=== PATIENT | female | born 2000 | race African-American/Black ===

== ENCOUNTER 2020-01-13 09:29 | Emergency (ER) | payer MEDICAID, OTHER ==
[~2020-01-13] VITALS: Ht 167 cm; Wt 49.8 kg
--- OUTSIDE RECORDS SUMMARY | 2020-01-13 09:49 | XMS REPORT ---
Author Author Tiara EVANS 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 Active [id number] ALLERGIES No Information ENCOUNTERS Encounter Location Date Diagnosis [facility] [id number] [place] [phone] February, [facility] [address] [phone] Jan, [facility] [address] [id number] [place] [phone] Jan, Adjustment insomnia F51.02 ; Family discord Z63.8 ; Housing or economic problem Z59.9 and 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 [facility] [id number] [place] [phone] Sep, Influenza B J10.1 and Influe nza J11.1 [facility] [id number] [place] [phone] Aug, Encounter for immunization Z 23 IMMUNIZATIONS Vaccine Route Administration Date Status BEXSERO (MEN B) IM Intramuscular Aug 05, 2017 Administered MENINGOCOCCAL (MENVEO) IM Intramuscular Aug 05, 2017 Administ melchor GARDASIL 9 IM Intramuscular Aug 05, 2017 Administered HEP A (PED/ADOL-2 DOSE) IM Intramuscular Aug 05, 2017 Adminis tered SOCIAL HISTORY Never Assessed REASON FOR VISIT MCV4/Hep A/HPV/Bexsero-BStansbury ACCOUNT LIAISON/METAL CABINET FINISHER PLAN OF CARE Activity Details Follow Up 4 Weeks Reason: VITAL SIGNS MEDICATIONS Unknown Medications RESULTS No Results PROCEDURES Procedure Date Ordered Result Body Site HEP A (PED/ADOL-2 DOSE) Aug 05, 2017 GARDISIL 9 Aug 05, 2017 BEXSERO (MEN B) Aug 05, 2017 MENINGOCOCCAL (MENVEO) Aug 05, 2017 IMMUNIZATION ADMIN, EACH ADD (please include units) Aug 05, 2017 SINGLE IMMUNIZATION ADMIN Aug 05, 2017 INSTRUCTIONS MEDICATIONS ADMINISTERED No Known Medications
--- OUTSIDE RECORDS SUMMARY | 2020-01-13 09:49 | XMS REPORT ---
Author Author Tiara EVANS Organization 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 Active [id number] ALLERGIES No Known Allergies ENCOUNTERS Encounter Location Date Diagnosis [facility] [id number] [place] [phone] February, [facility] [address] [phone] Jan, [facility] [id number] [place] [phone] Jan, Adjustment insomnia F51.02 ; Family discord Z63.8 ; Housing or economic problem Z59.9 and 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 Reason: VITAL SIGNS Height 66 in 2017-09-16 Weight 106.4 lbs 2017-09-16 Temperature 100.2 degrees Fahrenheit 2017-09-16 Heart Rate 97 bpm 2017-09-16 Respiratory Rate 18 2017-09-16 BMI 17.17 kg/m2 2017-09-16 Blood pressure systolic 138 mmHg 2017-09-16 Blood pressure diastolic 82 mmHg 2017-09-16 MEDICATIONS Medication Instructions Dosage Frequency Start Date End Date Duration S tatus Tamiflu 75 MG Orally Twice a day 1 capsule 12h Sep, 5 day(s) Active Zofran 4 MG Orally twice a day prn nausea/vomiting 2 tablets Sep, 05 days Active RESULTS Name Result Date Reference Range INFLUENZA A & B (IN HOUSE) 2017-09-16 INFLUENZA A Negative INFLUENZA B Positive Control + Lot # [id number] Exp date 12/02/2018 PROCEDURES Procedure Date Ordered Result Body Site INFLUENZA ASSAY W/OPTIC Sep 16, 2017 INSTRUCTIONS MEDICATIONS ADMINISTERED No Known Medications
--- OUTSIDE RECORDS SUMMARY | 2020-01-13 09:49 | XMS REPORT | Continuity of Care Document ---
Author Organization Unknown Address Unknown Phone Unavailable Allergies There is no data. Medications There is no data. Problems There is no data. Procedures There is no data. Results Test Result Range CULTURE, URINE - 12/01/19 19:00 CULTURE, URINE, ROUTINE SEE NOTE NRG CULTURE, GENITAL - 12/01/19 19:00 CULTURE, GENITAL SEE NOTE NRG GC/CHLAMYDIA (SWAB OR URINE)-RAPID - 19:00 CHLAMYDIA TRACHOMATIS RNA, TMA DETECTED NOT DETECTED NEISSERIA GONORRHOEAE RNA, TMA NOT DETECTED NOT DETECTED COMMENT NRG CULTURE, GENITAL - 01/07/20 17:30 CULTURE, GENITAL SEE NOTE NRG Encounters ACCT No. Visit Date/Time Discharge Status Pt. Type Provider Facility Loc./Unit Complaint [id number] 01/07/2020 16:30:00 01/07/2020 23:59: 59 [facility] [id number] 01/07/2020 16:30:00 Document Registration [id number] 12/01/2019 14:20:00 Document Registration
--- OUTSIDE RECORDS SUMMARY | 2020-01-13 09:49 | XMS REPORT ---
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 Active [id number] ALLERGIES No Information ENCOUNTERS Encounter Location Date Diagnosis [facility] [address] [facility] [id number] [place] [phone] February, [facility] [id number] [place] [phone] Jan, [facility] [id number] [place] [phone] Jan, Adjustment insomnia F51.02 ; Family discord Z63.8 ; Housing or economic problem Z59.9 and 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
--- OUTSIDE RECORDS SUMMARY | 2020-01-13 09:49 | XMS REPORT ---
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 Active [id number] ALLERGIES No Information ENCOUNTERS Encounter Location Date Diagnosis [facility] [address] [place] [phone] February, [facility] [id number] [place] [phone] Jan, [facility] [id number] [place] [phone] Jan, Adjustment insomnia F51.02 ; Family discord Z63.8 ; Housing or economic problem Z59.9 and 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
--- OUTSIDE RECORDS SUMMARY | 2020-01-13 09:49 | XMS REPORT ---
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 Active [id number] ALLERGIES No Known Allergies ENCOUNTERS Encounter Location Date Diagnosis [facility] [id number] [place] [phone] February, [facility] [address] [phone] Jan, [facility] [id number] [place] [phone] Jan, Adjustment insomnia F51.02 ; Family discord Z63.8 ; Housing or economic problem Z59.9 and 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 [facility] [id number] [place] [id number] Sep, Influenza B J10.1 and Influe nza J11.1 [facility] [id number] [place] [address] [phone] Aug, Encounter for immunization Z 23 IMMUNIZATIONS No Known Immunizations SOCIAL HISTORY Never Assessed REASON FOR VISIT depression-Lester MONROE PLAN OF CARE Activity Details Follow Up 1 Week Reason: VITAL SIGNS Height 66 in 2018-01-27 Weight 111.8 lbs 2018-01-27 Temperature 99.4 degrees Fahrenheit 2018-01-27 Heart Rate 71 bpm 2018-01-27 Respiratory Rate 18 2018-01-27 BMI 18.04 kg/m2 2018-01-27 Blood pressure systolic 114 mmHg 2018-01-27 Blood pressure diastolic 65 mmHg 2018-01-27 MEDICATIONS Medication Instructions Dosage Frequency Start Date End Date Duration S tatus Zoloft 25 MG Orally Once a day x 1 week then increase to 2 taablets daily 1 tablet Jan, 30 day(s) Active Zofran 4 MG Orally twice a day prn nausea/vomiting 2 tablets Sep, 05 days Not-Taking Tamiflu 75 MG Orally Twice a day 1 capsule 12h Sep, 5 day(s) Not-Taking RESULTS No Results PROCEDURES No Known procedures INSTRUCTIONS MEDICATIONS ADMINISTERED No Known Medications
[2020-01-13] MEDS ORDERED: METR250T PO (09:59)
--- NOTE | 2020-01-13 10:00 | ED General ---
General Chief Complaint: LOCOMOTIVE OPERATOR Stated Complaint: FALL;18 WEEKS PREG Source of Information: Patient Exam Limitations: No Limitations History of Present Illness Date Seen by Provider: Jan 13, 2020 Time Seen by Provider: 09:46 Initial Comments Here with report of fall at home. She was playing with her family member and had the dog. The dog cross behind her in the leash tripped her. She fell backward onto her bottom. She is approximately 18 weeks and was feeling some lower uterine pain. She is being treated currently for bacterial vaginosis though. Denies vaginal bleeding or discharge currently. Denies any significant abdominal cramping or low back pain. Denies other injury. Timing/Duration: 1-3 Hours Severity: Mild Associated Systoms: No Chest Pain, No Fever/Chills, No Nausea/Vomiting, No Shortness of Air, No Weakness Allergies and Home Medications Patient Home Medication List Home Medication List Reviewed: Yes Review of Systems Review of Systems Constitutional: no symptoms reported Respiratory: no symptoms reported Gastrointestinal: see HPI, abdominal pain; No nausea, No vomiting Genitourinary: no symptoms reported : Yes Musculoskeletal: no symptoms reported Past Qnwzkrv-Gejlvh-Zsvbyk Hx Past Med/Social Hx: Reviewed Nursing Past Med/Soc Hx Patient Social History Alcohol Use: Denies Use Recreational Drug Use: Yes Drug of Choice: marijuana Smoking Status: Never a Smoker Recent Hopitalizations: No Physical Abuse: No Sexual Abuse: No Mistreated: No Fear: No Seasonal Allergies Seasonal Allergies: No Past Medical History Surgeries: No Respiratory: No Cardiac: No Neurological: No Genitourinary: No Gastrointestinal: No Musculoskeletal: No Endocrine: No HEENT: No Cancer: No Psychosocial: No Integumentary: No Blood Disorders: No Family Medical History Reviewed Nursing Family Hx Physical Exam Vital Signs Vital Signs - First Documented 01/13/20 09:30 Temp 35.8 Pulse 75 Resp 18 B/P (MAP) 100/40 Capillary Refill : Height, Weight, BMI Height: '" Weight: lbs. oz. kg; BMI Method: General Appearance: No Apparent Distress, WD/WN Respiratory: Lungs Clear, Normal Breath Sounds Cardiovascular: Regular Rate, Rhythm, No Murmur Gastrointestinal: No Organomegaly, No Pulsatile Mass, Soft, Other (gravid to area below the umbilicus. Mild lower abdominal tenderness to palpation in the suprapubic region) Extremity: Normal Range of Motion, Non Tender Neurologic/Psychiatric: Alert, Oriented x3 Skin: Normal Color, Warm/Dry Progress/Results/Core Measures Suspected Sepsis SIRS Temperature: Pulse: Respiratory Rate: Blood Pressure / Mean: Results/Orders My Orders Orders - CEDRICK MORALES MD Us Ob Preg Late(14-40wks)[id number] (01/13/20 09:46) Vital Signs/I&O 01/13/20 09:30 Temp 35.8 Pulse 75 Resp 18 B/P (MAP) 100/40 Capillary Refill : Progress Note : Progress Note Seen and evaluated. Patient artery being treated for vaginal infection. We will get a ultrasound pelvis OB and evaluate current status of child. Monitor patient. 1038: Preliminary ultrasound results showed no acute findings with normal heart rate. Patient feeling better. Discharged home with return precautions. Patient verbalize understanding instructions and agreement with plan. Diagnostic Imaging Diagonstic Imaging: Ultrasound Plain Films/CT/US/NM/MRI: pelvis Comments NAME: JORDAN JOSEPH [facility] REC#: [id number] PT STATUS: REG ER : 2000 PHYSICIAN: CEDRICK MORALES MD ADMIT DATE: 01/13/20/ER Draft Date of Exam:01/13/20 US OB PREG LATE(14-40WKS)[id number] INDICATION: Fell. TECHNIQUE: Multiple real-time grayscale images were obtained over the gravid uterus. COMPARISON: There are no prior studies available for comparison. FINDINGS: There is a single live fetus in cephalic presentation. heart motion was noted at a rate of 135 bpm is recorded. There are no obvious abnormalities identified, although a complete survey was not performed. Amniotic fluid volume is within normal limits. The placenta is anterior and intact. There is no evidence of previa. The growth parameters are fairly uniform. Biometrical measurements are as follows: Biparietal 4.63 cm, age 20 weeks 0 days. Head circumference 17.36 cm, age 20 weeks 0 days. Abdominal circumference 16.47 cm, age 21 weeks 4 days. Femur length 3.44 cm, age 20 weeks 6 days. Sonographic estimate age: 20 weeks 5 days. Sonographic estimated date of delivery: 05/27/2020. Estimated Weight: 394 gm (+/- 58 gm). LMP percentile: 98%. heart rate: 135 beats per minute. number: 1 of 1. IMPRESSION: 1. There is a single live fetus approximately 20 weeks 5 days gestation +/- 1.5 weeks. EDC is May 27, 2020. 2. There are no obvious abnormalities identified and there is no sign of an injury to the placenta. Dictated on workstation # [id number] Dict: 01/13/20 1030 Trans: 01/13/20 1039 [facility] [id number] Interpreted by: MARINO GARCIA MD Electronically signed by: Departure Impression Primary Impression: Lower abdominal pain Additional Impression: Abdominal pain during Qualified Codes: O26.892 - Other specified related conditions, s econd trimester; R10.9 - Unspecified abdominal pain Disposition: 01 HOME, SELF-CARE Condition: Improved Departure-Patient Inst. Decision time for Depature: 10:40 Referrals: [facility] [place] Primary Care Physician LORRAINE WHITE MD (Family) Primary Care Physician Patient Instructions: Abdominal Trauma in (DC), Acute Abdomen (Belly Pain), Adult (DC) Add. Discharge Instructions: All discharge instructions reviewed with patient and/or family. Voiced understanding. Follow-up with your OB doctor in the next several days for recheck and further evaluation. You may call the office. Return for worse pain, vaginal bleeding, weakness, breathing problems or other concerns as needed. Copy Copies To 1: LORRAINE WHITE MD, TIMOTHY D MD Jan 13, 2020 10:00
--- NOTE | 2020-01-13 10:40 | Diagnostic Imaging Report ---
INDICATION: Fell. TECHNIQUE: Multiple real-time grayscale images were obtained over the gravid uterus. COMPARISON: There are no prior studies available for comparison. FINDINGS: There is a single live fetus in cephalic presentation. heart motion was noted at a rate of 135 bpm is recorded. There are no obvious abnormalities identified, although a complete survey was not performed. Amniotic fluid volume is within normal limits. The placenta is anterior and intact. There is no evidence of previa. The growth parameters are fairly uniform. Biometrical measurements are as follows: Biparietal 4.63 cm, age 20 weeks 0 days. Head circumference 17.36 cm, age 20 weeks 0 days. Abdominal circumference 16.47 cm, age 21 weeks 4 days. Femur length 3.44 cm, age 20 weeks 6 days. Sonographic estimate age: 20 weeks 5 days. Sonographic estimated date of delivery: 05/27/2020. Estimated Weight: 394 gm (+/- 58 gm). LMP percentile: 98%. heart rate: 135 beats per minute. number: 1 of 1. IMPRESSION: 1. There is a single live fetus approximately 20 weeks 5 days gestation +/- 1.5 weeks. EDC is May 27, 2020. 2. There are no obvious abnormalities identified and there is no sign of an injury to the placenta. Dictated by: Dictated on workstation # [id number]
== END 2020-01-13 10:54 | disposition home or self-care (01) ==
LOC: ER 09:33
DX: O26.892 Other specified pregnancy related conditions, second trimester (principal); R10.30 Lower abdominal pain, unspecified; Z3A.18 18 weeks gestation of pregnancy; W01.0XXA Fall on same level from slipping, tripping and stumbling without subsequent striking against object, initial encounter; Y92.009 Unspecified place in unspecified non-institutional (private) residence as the place of occurrence of the external cause
CPT/HCPCS: 76805

== ENCOUNTER 2020-12-05 21:29 | Emergency (ER) | payer MEDICAID ==
[~2020-12-05] VITALS: Ht 167.7 cm; Wt 61.4 kg
[~2020-12-05 21:29] MED LIST: METR250T PO
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
[2020-12-05] MEDS ORDERED: ACETAMINOPHEN 500 MG TAB (TYLENOL) PO ONE (22:30)
[2020-12-05] MEDS ORDERED: ONDANSETRON 4 MG (ZOFRAN) ORAL DISSOLVE TAB PO ONE (22:30)
[2020-12-05 23:13] VITALS: BP 126/66
== END 2020-12-05 23:13 | disposition home or self-care (01) ==
LOC: EDUNIT# 21:29 → ER 21:31
DX: O26.892 Other specified pregnancy related conditions, second trimester (principal); S16.1XXA Strain of muscle, fascia and tendon at neck level, initial encounter; R51.9 Headache, unspecified; R10.32 Left lower quadrant pain; R10.31 Right lower quadrant pain; Z3A.25 25 weeks gestation of pregnancy; V89.2XXA Person injured in unspecified motor-vehicle accident, traffic, initial encounter

== ENCOUNTER 2020-12-05 23:28 | Outpatient (CLI) | payer MEDICAID ==
[~2020-12-05] VITALS: Ht 167 cm; Wt 61.5 kg
[2020-12-05 23:42] VITALS: BP 123/59
[2020-12-05 23:59] LABS: BILIRUBIN,URINE NEGATIVE (NEGATIVE); CLARITY,URINE SL CLOUDY; COLOR,URINE YELLOW; GLUCOSE, URINE (UA) NEGATIVE (NEGATIVE); KETONES,URINE NEGATIVE (NEGATIVE); LEUKOCYTE ESTERASE ,URINE NEGATIVE (NEGATIVE); NITRITE,URINE NEGATIVE (NEGATIVE); PROTEIN,URINE NEGATIVE (NEGATIVE)
[2020-12-06] VITALS: BP 123/59
[2020-12-06 00:10] LABS: AMORPHOUS SEDIMENT,UR FEW AMOR URATES /LPF; BACTERIA,URINE MODERATE /HPF; SQUAMOUS EPITHELIAL CELL,UR 25-50 /HPF
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
== END 2020-12-06 00:06 | disposition left against medical advice (07) ==
LOC: WSo 23:28 → LDRP 23:29 → WSo 12-06 00:06
PROVIDERS: ATTEND Family Medicine
DX: O9A.212 Injury, poisoning and certain other consequences of external causes complicating pregnancy, second trimester (principal); Z3A.25 25 weeks gestation of pregnancy
CPT/HCPCS: 81000

== ENCOUNTER 2021-01-24 11:53 | Outpatient (CLI) | payer MEDICAID ==
[2021-01-24 12:14] VITALS: BP 118/71
[2021-01-24 12:16] VITALS: BP 118/71
[2021-01-24 12:27] LABS: BILIRUBIN,URINE NEGATIVE (NEGATIVE); CLARITY,URINE CLEAR; COLOR,URINE YELLOW; GLUCOSE, URINE (UA) NEGATIVE (NEGATIVE); KETONES,URINE NEGATIVE (NEGATIVE); LEUKOCYTE ESTERASE ,URINE TRACE (NEGATIVE); NITRITE,URINE NEGATIVE (NEGATIVE); PROTEIN,URINE NEGATIVE (NEGATIVE)
[2021-01-24 12:34] LABS: BACTERIA,URINE FEW /HPF
[2021-01-24] MEDS ORDERED: ACETAMINOPHEN 500 MG TAB (TYLENOL) ONE (13:35)
[2021-01-24] MEDS ORDERED: ACETAMINOPHEN 500 MG TAB (TYLENOL) PO PRN (13:45)
[2021-01-24] MEDS ORDERED: LACTATED RINGERS 1,000 ML IV SCH (14:15)
[2021-01-24] MEDS ORDERED: TERBUTALINE INJ 1 MG/ML (BRETHINE) AMP SC ONE ×2 (14:15→17:30)
[2021-01-24] MEDS ORDERED: BETAMETHASONE ACE/NA PHOS 6 MG/ML (CELESTONE SOLUSPAN) ONE (18:16)
--- NOTE | 2021-01-24 18:25 | Short Stay Summary ---
History of Present Illness History of Present Illness Reason for visit/HPI 20-year-old 2 living 1 who presents to labor and delivery at [facility]. She is noted to be at 32 weeks 4/7 gestation. Patient is followed by Dr. Pagan at [facility] in [facility]. She does have a history delivering 9 months ago at 33 weeks gestation after spontaneous rupture of membranes. She stated she quickly went on to deliver. Date of Admission January 24, 2021 observation Date of Discharge January 24, 2021 Time Seen by Provider: 18:00 Attending Physician Red Alves MD Admitting Physician [place] Consult Allergies and Home Medications Allergies Coded Allergies: No Known Drug Allergies (Unverified , 12/05/20) Patient Home Medication List Home Medication List Reviewed: Yes Past Greikbk-Zvjvmm-Jndehw Hx Patient Social History Marrital Status: single Number of Children: 1 Drug of Choice: "WEED" - LAST USED YESTERDAY (01/23/21) Smoking Status: Never a Smoker 2nd Hand Smoke Exposure: No Recent Hopitalizations: No Seasonal Allergies Seasonal Allergies: No Surgeries No Respiratory No Cardiovascular No Neurological No Reproductive System Expected Date of Delivery: Mar 17, 2021 Hx : 2 Hx Para: 1 Hx Total # of Abortions (Spona: 0 Genitourinary No Gastrointestinal No Musculoskeletal No Endocrine History of Endocrine Disorders: No HEENT History of HEENT Disorders: No Cancer No Psychosocial History of Psychiatric Problem: No Integumentary History of Skin or Integumenta: No Blood Transfusions History of Blood Disorders: No Review of Systems Constitutional: no symptoms reported Physical Exam Vital Signs Vital Signs - First Documented 01/24/21 12:16 Temp 37.0 Pulse 88 Resp 18 O2 Delivery Room Air Capillary Refill : Less Than 3 Seconds Height, Weight, BMI Height: '" Weight: lbs. oz. kg; 22.05 BMI Method: General Appearance: No Apparent Distress Eyes: Bilateral Eye Normal Inspection Neck: Non Tender Respiratory: Lungs Clear Cardiovascular: Regular Rate, Rhythm Comments Cervix exam reveals 2 cm dilated and cervix is currently thick. monitor reveals rian every 2 to 3 minutes despite IV bolus hydration as well as 2 doses of terbutaline subQ Short Stay Diagnosis Discharge Diagnosis-Short Stay Admission Diagnosis: 1. Intrauterine at 32 4/7 weeks gestation Final Discharge Diagnosis: 1. Intrauterine at 32 4/7 weeks gestation 2. labor Conclusion Labs Laboratory Tests 01/24/21 12:14: Urine Color YELLOW, Urine Clarity CLEAR, Urine pH 8.0, Urine Specific [place] 1.015L, Urine Protein NEGATIVE, Urine Glucose (UA) NEGATIVE, Urine Ketones NEGATIVE, Urine Nitrite NEGATIVE, Urine Bilirubin NEGATIVE, Urine Urobilinogen 0.2, Urine Leukocyte Esterase TRACEH, Urine RBC (Auto) NEGATIVE, Urine RBC NONE, Urine WBC 2-5, Urine Squamous Epithelial Cells 2-5, Urine Crystals NONE, Urine Bacteria FEWH, Urine Casts NONE, Urine Mucus NEGATIVE, Urine Culture Indicated NO Conclusion/Plan Despite IV hydration and terbutaline and with patient's history of rapid early delivery at 33 weeks I felt it was best she be transferred to [place]. Spoke with Dr. Jess Subramanian and she agreed to transfer. Patient will receive subcu terbutaline 12 mg here at [facility]. She will also be given Quijano catheter and magnesium. Transfer via [facility] ambulance. Patient agrees to transfer and she knows the benefits and risks. RED ALVES MD Jan 24, 2021 18:25
[2021-01-24] MEDS ORDERED: BETAMETHASONE ACE/NA PHOS 6 MG/ML (CELESTONE SOLUSPAN) IM SCH (18:30)
[2021-01-24] MEDS ORDERED: CALCIUM GLUC. 10% 4.65 MEQ/10 ML VIAL IV PRN (18:30)
[2021-01-24] MEDS ORDERED: MAGNESIUM 4 GM/100 ML IVPB 100 ML IV SCH (18:30)
[2021-01-24 18:50] VITALS: BP 131/68
[2021-01-24] MEDS ORDERED: MAGNESIUM SULFATE DRIP 500 ML IV SCH (19:00)
== END 2021-01-24 19:25 ==
LOC: WSo 11:53 → LDRP 11:54 → WSo 19:25
PROVIDERS: ATTEND Family Medicine
DX: O60.03 Preterm labor without delivery, third trimester (principal); Z3A.32 32 weeks gestation of pregnancy
CPT/HCPCS: 81000; 96372; 96374; 96376; G0463; 99214

== ENCOUNTER 2021-02-18 23:35 | Inpatient (IN) | payer MEDICAID ==
[~2021-02-18] VITALS: Ht 167.7 cm; Wt 61.5 kg
[2021-02-18 23:45] VITALS: BP 128/69
[2021-02-18] MEDS ORDERED: PNV1TABL9 PO (23:59)
[2021-02-19] VITALS (43 sets, daily range): BP systolic 106–158; BP diastolic 53–97
[2021-02-19] MEDS ORDERED: D5 LR IV SOLUTION 1,000 ML IV SCH
[2021-02-19] MEDS ORDERED: MINERAL OIL CONCENTRATE 99.9% 15 ML UDC TOP PRN
[2021-02-19 00:17] LABS: BASOPHILS % (AUTO) 0 % (0-10); EOSINOPHILS # (AUTO) 0.2 10^3/uL (0.0-0.3); EOSINOPHILS % (AUTO) 2 % (0-10); HEMATOCRIT 30 % (35-52); HEMOGLOBIN 9.8 g/dL (11.5-16.0); LYMPHOCYTES # (AUTO) 2.7 10^3/uL (1.0-4.0); LYMPHOCYTES % (AUTO) 26 % (12-44); MEAN CORPUSCULAR HEMOGLOBIN 29 pg (25-34); MEAN CORPUSCULAR HGB CONC 33 g/dL (32-36); MEAN CORPUSCULAR VOLUME 88 fL (80-99); MEAN PLATELET VOLUME 9.8 fL (9.0-12.2); MONOCYTES # (AUTO) 1.4 10^3/uL (0.0-1.0); MONOCYTES % (AUTO) 14 % (0-12); NEUTROPHILS % (AUTO) 57 % (42-75); PLATELET COUNT 288 10^3/uL (130-400); WHITE BLOOD COUNT 10.5 10^3/uL (4.3-11.0)
[2021-02-19] MEDS ORDERED: fentaNYL 2 mcg/ml BUPIVA 0.125 100 ML ONE (00:27)
[2021-02-19] MEDS ORDERED: fentaNYL INJ 100 MCG/2 ML AMP ONE (00:39)
[2021-02-19] MEDS ORDERED: BUPIVACAINE 0.25% 30 ML (SENSORCAINE) VIAL ONE (00:39)
[2021-02-19] MEDS ORDERED: EPIDURAL (fentaNYL 2 MCG/ML BUPIVA 0.125%)100 ML BAG EPI PRN (01:00)
[2021-02-19] MEDS ORDERED: NALOXONE 0.4 MG/ML 1 ML (NARCAN) VIAL IV PRN (01:00)
[2021-02-19] MEDS ORDERED: ONDANSETRON 4 MG/2 ML (SDV) Z0FRAN IV PRN (01:00)
[2021-02-19] MEDS ORDERED: fentaNYL INJ 100 MCG/2 ML AMP INJ ONE (01:00)
[2021-02-19] MEDS ORDERED: LACTATED RINGERS 1,000 ML IV ONE ×2 (01:00)
[2021-02-19] MEDS ORDERED: AMPICILLIN 2,000 MG/14.8 ML (IV USE) ONE (01:36)
[2021-02-19] MEDS ORDERED: WATER (STERILE) FOR INJECTION 20 ML ONE (01:36)
[2021-02-19] MEDS ORDERED: AMPICILLIN 2,000 MG/14.8 ML (IV USE) IV ONE (01:45)
[2021-02-19] MEDS ORDERED: OXYTOCIN PRE-MIX DRIP 500 ML IV ONE ×2 (05:08→06:28)
[2021-02-19] MEDS ORDERED: LIDOCAINE/EPI 2% 1:200,00 (XYLOCAINE) 20 ML VIAL ONE (05:09)
[2021-02-19] MEDS ORDERED: CATHETER FLUSH 10 ML SYR IV SCH ×2 (06:00→14:00)
--- NOTE | 2021-02-19 06:22 | History & Physical-OB ---
OB - Chief Complaint & HPI Date/Time Date of Admission: Date of Admission: Date seen by a Provider: February 19, 2021 Time Seen by a Provider: 05:45 Chief Complaint/History OB-Reason for Admission/Chief: Rupture of Membranes Hx : 2 Hx Para: 1 Expected Date of Delivery: Mar 20, 2021 Gestational Age in Weeks: 36 Gestational Age in Days: 2 History of Labs O+, Ab neg Rub Imm HIV/HepB/C/RPR NR GC/Chyl Neg Normal 1 hr GTT GBS pending Allergies and Home Medications Allergies Coded Allergies: No Known Drug Allergies (Unverified , 12/05/20) Home Medications Pnv Cmb#21/Iron/Folic Acid 1 Each Tablet, 1 EACH PO DAILY Prescribed by: AMANDA RODRIGUEZ on 02/18/21 2323 Last Action: New Order Patient Home Medication List Home Medication List Reviewed: Yes OB - History Hx of Present Care: Yes Ultrasounds: Normal mid trimester US Obstetrical Complications: None Medical Complications: Other Information Induced Hypertension: No Maternal Gestational Diabetes: No Hemorrhage: No Obstetrical History Hx : 2 Hx Para: 1 Hx # Term Pregnancies: 0 Hx # Pregnancies: 1 Number of Living Children: 1 Patient Past Medical History None Social History/Family History Alcohol Use: Denies Use Smoking Cessation: Never smoker 2nd Hand Smoke Exposure: No Immunizations Tetanus Booster (TDap): Less than 5yrs Rubella: immune RPR/VDRL: Negative GBS Status: Unknown HBsAG: Negative OB - Admission Exam Physical Exam Vitals: Vital Signs 02/19/21 02/19/21 00:05 01:30 Temp 36.2 Pulse 63 Resp 18 B/P (MAP) 114/54 (74) Pulse Ox 98 O2 Delivery Room Air HEENT: NCAT Heart: Rhythm Normal Lungs: Clear Abdomen: Gravid Cervical Dilatation: 10cm Effacement: 100% Station: +2 Membranes: Ruptured Amniotic Fluid: Clear Heart Rate: 130's Decelerations: Variable Decelerations Short Term Variability: Present Senior Care Variability: Average (6-25) Contractions on Admission: < 5 Minutes Apart Intensity: Firm OB - Assessment/Plan/Diagnosis Assessment Assessment: active labor, rupture of membranes Admission Dx Active labor 36 week gestation SROM Admission Status: Inpatient Order (span 2 midnights) Reason for Inpatient Admission: Labor Plan Plan: Expectant Management Other Plan 20 yo @ 36.2 wga here after SROM at home, clear Plan - Expectant management - Epidural for pain control Copy Copies To 1: LORRAINE WHITE MD, HOLLY R MD February 19, 2021 06:22
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
[2021-02-19] MEDS: OXYTOCIN PRE-MIX DRIP 500 ML IV SCH (06:40)
[2021-02-19] MEDS ORDERED: BENZOCAINE/MENTHOL (DERMOPLAST) 56 ML CAN TP PRN (06:45)
[2021-02-19] MEDS ORDERED: WITCH HAZEL(TUCKS) 40 EA JAR TOP PRN (06:45)
[2021-02-19] MEDS ORDERED: IBUPROFEN 600 MG (MOTRIN) TAB PO ONE (07:40)
[2021-02-19] MEDS: PRENATAL VITAMIN 1 EA TAB PO SCH (07:53)
[2021-02-19] MEDS: DOCUSATE SODIUM 100 MG (COLACE) CAP PO SCH ×2 (07:53→20:29)
[2021-02-19] MEDS: IBUPROFEN 600 MG (MOTRIN) TAB PO SCH ×3 (07:54→20:29)
[2021-02-19] MEDS: ACETAMINOPHEN 500 MG TAB (TYLENOL) PO SCH ×2 (16:45→22:50)
[2021-02-20 00:30] VITALS: BP 125/60
[2021-02-20] MEDS: IBUPROFEN 600 MG (MOTRIN) TAB PO SCH ×5 (02:24→22:42)
[2021-02-20 05:17] VITALS: BP 125/69
[2021-02-20] MEDS: ACETAMINOPHEN 500 MG TAB (TYLENOL) PO SCH ×4 (05:17→18:41)
[2021-02-20 06:15] LABS: BASOPHILS # (AUTO) 0.1 10^3/uL (0.0-0.1); BASOPHILS % (AUTO) 1 % (0-10); EOSINOPHILS # (AUTO) 0.3 10^3/uL (0.0-0.3); EOSINOPHILS % (AUTO) 2 % (0-10); HEMATOCRIT 28 % (35-52); HEMOGLOBIN 9.2 g/dL (11.5-16.0); LYMPHOCYTES # (AUTO) 3.2 10^3/uL (1.0-4.0); LYMPHOCYTES % (AUTO) 26 % (12-44); MEAN CORPUSCULAR HEMOGLOBIN 29 pg (25-34); MEAN CORPUSCULAR HGB CONC 33 g/dL (32-36); MEAN CORPUSCULAR VOLUME 88 fL (80-99); MEAN PLATELET VOLUME 9.7 fL (9.0-12.2); MONOCYTES # (AUTO) 1.7 10^3/uL (0.0-1.0); MONOCYTES % (AUTO) 14 % (0-12); NEUTROPHILS # (AUTO) 7.1 10^3/uL (1.8-7.8); NEUTROPHILS % (AUTO) 57 % (42-75); PLATELET COUNT 240 10^3/uL (130-400); WHITE BLOOD COUNT 12.5 10^3/uL (4.3-11.0)
[2021-02-20] MEDS: PRENATAL VITAMIN 1 EA TAB PO SCH (07:00)
--- NOTE | 2021-02-20 07:03 | Progress Note ---
Subjective Subjective/Events-last exam Having some back tenderness from epidural. Cramping occasionally but heating pad helps. Objective Exam Last Set of Vital Signs Vital Signs Date Time Temp Pulse Resp B/P (MAP) Pulse Ox O2 Delivery O2 Flow Rate FiO2 02/20/21 05:17 37.1 60 16 125/69 (87) 98 Room Air 02/19/21 05:45 0.00 Capillary Refill : NONE I&O Intake and Output 02/20/21 00:00 Intake Total 2516 ml Balance 2516 ml Intake IV Total 2516 ml Daily Weight Change No General: No Acute Distress Lungs: Clear to Auscultation Abdomen: Soft Results/Procedures Lab Laboratory Tests 02/20/21 06:03: White Blood Count 12.5H, Red Blood Count 3.20L, Hemoglobin 9.2L, Hematocrit 28L, Mean Corpuscular Volume 88, Mean Corpuscular Hemoglobin 29, Mean Corpuscular Hemoglobin Concent 33, Red Cell Distribution Width 12.6, Platelet Count 240, Mean Platelet Volume 9.7, Immature Granulocyte % (Auto) 1, Neutrophils (%) (Auto) 57, Lymphocytes (%) (Auto) 26, Monocytes (%) (Auto) 14H, Eosinophils (%) (Auto) 2, Basophils (%) (Auto) 1, Neutrophils # (Auto) 7.1, Lymphocytes # (Auto) 3.2, Monocytes # (Auto) 1.7H, Eosinophils # (Auto) 0.3, Basophils # (Auto) 0.1, Immature Granulocyte # (Auto) 0.1 Assessment/Plan Assessment/Plan Admission Status: Inpatient Order (span 2 midnights) Assessment & Plan 1. IUP at 36 weeks--Delivered 02/19 -routine orders -planning on dc to home in the am of 02/21 -hg at 9.2 RED ALVES MD February 20, 2021 07:03
[2021-02-20] MEDS: DOCUSATE SODIUM 100 MG (COLACE) CAP PO SCH ×2 (08:20→22:42)
[2021-02-20 08:30] VITALS: BP 128/60
[2021-02-20 13:56] VITALS: BP 127/58
[2021-02-20 22:30] VITALS: BP 128/52
[2021-02-21] MEDS: ACETAMINOPHEN 500 MG TAB (TYLENOL) PO SCH ×2 (01:18→07:45)
[2021-02-21] MEDS: IBUPROFEN 600 MG (MOTRIN) TAB PO SCH (06:50)
--- NOTE | 2021-02-21 07:01 | Anesthesia-Regional Post-Op ---
Regional Significant Intra-Op Events Notes post date entry from 02/20/21 at 0800 Patient Condition Mental Status: Alert, Oriented x3 Circulation: Same as Pre-Op Headache: Absent Sensation: Full Recovery Motor Block: Absent Post Op Complications Complications None Follow Up Care/Instructions Patient Instructions None needed. Anesthesia/Patient Condition Patient is doing well, no complaints, stable vital signs, no apparent adverse anesthesia problems. No complications reported per nursing. JOSE MANUEL DIAL CRNA February 21, 2021 07:01
--- NOTE | 2021-02-21 07:41 | Discharge Summary ---
Diagnosis/Chief Complaint Date of Admission February 18, 2021 at 23:51 Date of Discharge February 21, 2021 Admission Diagnosis Admission Diagnosis 1. Intrauterine at 36 weeks gestation 2. Spontaneous rupture of membranes 3. Anemia of Discharge Diagnosis 1. Intrauterine at 36 weeks gestation 2. Spontaneous rupture of membranes 3. Anemia of Chief Complaint/HPI Chief Complaint/HPI 20-year-old 2 now P2 L2 who initially presented with spontaneous rupture of membranes at 36 weeks 2 days gestation. She reported fluid was noted to be clear upon rupture. Discharge Summary-OBS Procedures 1. Epidural per anesthesia 2. Spontaneous vaginal delivery Discharge Physical Examination Allergies: Coded Allergies: No Known Drug Allergies (Unverified , 12/05/20) Vitals & I&Os Vital Sign - Last 12Hours Date Time Temp Pulse Resp B/P (MAP) Pulse Ox O2 Delivery O2 Flow Rate FiO2 02/20/21 22:30 36.3 71 18 128/52 (77) 99 Room Air 02/19/21 05:45 0.00 General Appearance: No Acute Distress Respiratory: Clear to Auscultation Cardiovascular: Regular Rate Abdominal: Soft (with uterus firm) Hospital Course Was the Problem List Reviewed?: Yes Patient presented during the evening of February 18 with spontaneous rupture of membranes. She ultimately underwent epidural per anesthesia for pain control. She went on to labor and ultimately delivered in the morning of February 19 a viable male without complications. See labor and delivery note for full details. following delivery she underwent routine care orders. She had no complications during the remainder of hospital stay. She tolerated regular diet. She was ambulatory and without leg complaint or chest pain. Her hemoglobin in the morning of February 20 was 9.2 compared to admission of 9.8. Patient was felt ready for dismissal in the morning of February 21, 2021. Discharge Instructions to patient/family Please see electronic discharge instructions given to patient. Discharge Medications Reviewed and agree with Discharge Medication list on patient's Discharge Instruction sheet RED ALVES MD February 21, 2021 07:41
[2021-02-21] MEDS ORDERED: IBUP-844 PO (07:43)
--- NOTE | 2021-02-21 07:44 | Discharge Inst-Women's Service ---
Discharge Inst-Women's Serv Depart Medication/Instructions New, Converted or Re-Newed RX: RX on Chart Problems Reviewed?: Yes Consults/Follow Up Additional Follow Up: Yes (Dr Pagan in 6 weeks.) Activity Activity: Activity as Tolerated Driving Instructions: No Driving for 1 Week Nothing Inside Vagina: No [place] (for 6 weeks.) Diet Discharge Diet: Regular Diet Return to The Hospital For: as below Symptoms to Report to : Bleeding Excessive, Pain Increased, Vaginal Discharge Foul For Any Problems or Questions: Contact Your Physician RED ALVES MD February 21, 2021 07:44
[2021-02-21] MEDS: PRENATAL VITAMIN 1 EA TAB PO SCH (07:45)
[2021-02-21] MEDS: DOCUSATE SODIUM 100 MG (COLACE) CAP PO SCH (07:45)
[2021-02-21 07:48] VITALS: BP 134/60
[2021-02-21 10:41] VITALS: BP 134/60
== END 2021-02-21 10:48 | disposition home or self-care (01) | DRG 807 ==
LOC: WSo 23:35 → LDRP 23:39 → WSo 23:50 → LDRP 23:51
PROVIDERS: ADMIT Family Medicine; ATTEND Family Medicine
PROC: 10E0XZZ Delivery of Products of Conception, External Approach (ICD-10-PCS; principal; 2021-02-19)
DX: O60.14X0 Preterm labor third trimester with preterm delivery third trimester, not applicable or unspecified (principal); Z37.0 Single live birth; O99.013 Anemia complicating pregnancy, third trimester; D64.9 Anemia, unspecified; O69.81X0 Labor and delivery complicated by cord around neck, without compression, not applicable or unspecified; Z3A.36 36 weeks gestation of pregnancy
CPT/HCPCS: 36415; 85025; 86850; 86900; 86901; 99212

== ENCOUNTER 2021-04-09 18:25 | Emergency (ER) | payer MEDICAID ==
[~2021-04-09] VITALS: Ht 167.7 cm; Wt 61.2 kg
[~2021-04-09 18:25] MED LIST changes: +IBUP-844 PO; +PNV1TABL9 PO
[2021-04-09] MEDS ORDERED: ORPHENADRINE 60 MG/2 ML (NORFLEX) AMP (ED ONLY) IM ONE (19:00)
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
[2021-04-09 20:22] VITALS: BP 138/82
== END 2021-04-09 20:23 | disposition home or self-care (01) ==
LOC: EDUNIT# 18:25 → ER 18:26
DX: R07.81 Pleurodynia (principal)
CPT/HCPCS: 71101

== ENCOUNTER 2022-02-20 08:54 | Emergency (ER) | payer MEDICAID ==
[~2022-02-20] VITALS: Ht 167.7 cm; Wt 50.3 kg
--- NOTE | 2022-02-20 09:43 | ED General ---
General Chief Complaint: Oral/Throat Problems Stated Complaint: SORE THROAT - COUGH Nursing Triage Note: PT AMB TO RM 10 W C/O SORE THROAT W POSS WHITE PATCHES AND COUGH SX YESTERDAY. PT A&OX4. (FLORENCIO ALMONTE) History of Present Illness Date Seen by Provider: February 20, 2022 Time Seen by Provider: 09:25 Initial Comments 21 year old female presented today via private vehicle for throat pain of 1 week duration. She feels that the pain has worsened in the last few days and rates it as a 5/10 when she tries to swallow or cough. Yesterday she looked at her throat in the mirror and noticed what she felt were pus pockets in her throat and on her tonsils. She has been gurgling saltwater and reports that it initally helped with the pain. She denies fever, chills, headache, loss of taste or smell, sinus congestion, chest pain, N/V/D, or abdominal pain and she has no sick exposures that she is aware of. She does report an occasional cough with mild shortness of breath following. She has had strep throat in the past and reports this feels similar to that. Timing/Duration: 1 Week (FLORENCIO ALMONTE) Allergies and Home Medications Allergies Coded Allergies: No Known Drug Allergies (Unverified , 12/05/20) Patient Home Medication List Home Medication List Reviewed: Yes (CALLUM LANDERS MD) Amoxicillin (Amoxicillin) 500 Mg Capsule, 1,000 MG PO BID Prescribed by: CALLUM MERRITT on 02/20/22 1201 Ibuprofen (Ibu) 600 Mg Tablet, 600 MG PO Q6HR Prescribed by: RED ALVES on 02/21/21 0743 Pnv Cmb#21/Iron/Folic Acid ( Complete Caplet) 1 Each Tablet, 1 EACH PO DAILY Prescribed by: AMANDA RODRIGUEZ on 02/18/21 2060 Review of Systems Review of Systems Constitutional: see HPI EENTM: see HPI Respiratory: see HPI Cardiovascular: see HPI Gastrointestinal: see HPI Genitourinary: no symptoms reported : No Musculoskeletal: no symptoms reported Skin: no symptoms reported Psychiatric/Neurological: No Symptoms Reported Hematologic/Lymphatic: No Symptoms Reported Immunological/Allergic: no symptoms reported (FLORENCIO ALMONTE) Past Kmqpcfk-Cvcccj-Tqwsqk Hx Patient Social History Tobacco Use?: No Use of E-Cig and/or Vaping dev: Yes E-Cig or Vaping type used: Nicotine Use of E-Cig and/or Vaping Braydon: Current Everyday User Substance use?: No Alcohol Use?: No (FLORENCIO ALMONTE) Immunizations Up To Date Tetanus Booster (TDap): Less than 5yrs (FLORENCIO ALMONTE) Seasonal Allergies Seasonal Allergies: No (FLORENCIO ALMONTE) Past Medical History Surgeries: No Respiratory: No Cardiac: No Neurological: No Genitourinary: No Gastrointestinal: No Musculoskeletal: No Endocrine: No HEENT: No Cancer: No Psychosocial: No Integumentary: No Blood Disorders: No (FLORENCIO ALMONTE) Physical Exam Vital Signs Vital Signs - First Documented 02/20/22 09:09 Temp 36.3 Pulse 67 Resp 20 B/P (MAP) 126/79 (95) Pulse Ox 99 O2 Delivery Room Air (CALLUM LANDERS MD) Vital Signs Capillary Refill : Less Than 3 Seconds (FLORENCIO ALMONTE) Height, Weight, BMI Height: '" Weight: lbs. oz. kg; 17.00 BMI Method: General Appearance: No Apparent Distress, WD/WN Eyes: Bilateral Eye EOMI HEENT: TMs Normal, Pharyngeal Erythema, Tonsillar Enlargement Neck: Lymphadenopathy (L), Lymphadenopathy (R) Respiratory: Chest Non Tender, Lungs Clear, Normal Breath Sounds, No Accessory Muscle Use, No Respiratory Distress Cardiovascular: Regular Rate, Rhythm, No Murmur, Normal Peripheral Pulses Gastrointestinal: Normal Bowel Sounds, Non Tender, Soft Neurologic/Psychiatric: Alert, Oriented x3, Normal Mood/Affect Skin: Normal Color, Warm/Dry Lymphatic: Other (Bilateral anterior cervical lymphadenopathy) (FLORENCIO ALMONTE) Progress/Results/Core Measures Suspected Sepsis SIRS Temperature: Pulse: 67 Respiratory Rate: 20 Blood Pressure 126 /79 Mean: 95 (FLORENCIO ALMONTE) Results/Orders Lab Results Laboratory Tests Test 02/20/22 09:10 02/20/22 10:03 Range/Units Group A Streptococcus Screen NEGATIVE NEGATIVE Influenza Type A (RT-PCR) Not Detected Not Detecte Influenza Type B (RT-PCR) Not Detected Not Detecte SARS-CoV-2 RNA (RT-PCR) Not Detected Not Detecte (CALLUM LANDERS MD) My Orders Orders - CALLUM LANDERS MD Rapid Strep A Screen (02/20/22 09:26) Covid 19 Inhouse Test (02/20/22 10:05) Influenza A And B By Pcr (02/20/22 10:05) (CALLUM LANDERS MD) Vital Signs/I&O 02/20/22 02/20/22 09:09 12:18 Temp 36.3 Pulse 67 54 Resp 20 20 B/P (MAP) 126/79 (95) 124/80 Pulse Ox 99 98 O2 Delivery Room Air Room Air (CALLUM LANDERS MD) Vital Signs/I&O Capillary Refill : Less Than 3 Seconds (FLORENCIO ALMONTE) Blood Pressure Mean: 95 Progress Note : Progress Note 10:05 Strep test results came back negative, making strep throat unlikely. Nasal swab for flu and Covid were performed as they can be more common causes of sore throat. We will await results for now. (FLORENCIO ALMONTE) Progress Note #1: Time: 10:13 Progress Note Patient has been interviewed and examined by me along with Florencio Almonte, MS 3. Rapid strep test was negative. Patient had some mild erythema and edema of the posterior pharynx and tonsils. Because she has had associated cough, we offered influenza and COVID-19 screening which she accepted. This test is p ending at this time. Progress Note #2: Progress Note All screening swabs were negative. Patient was offered empiric treatment with amoxicillin until results of strep culture are known. She accepted the offer. See discharge instructions for further discussion. (CALLUM LANDERS MD) Departure Impression Primary Impression: Acute pharyngitis Qualified Codes: J02.9 - Acute pharyngitis, unspecified Disposition: 01 HOME, SELF-CARE Condition: Stable Departure-Patient Inst. Decision time for Depature: 11:58 (CALLUM LANDERS MD) Referrals: LORRAINE WHITE MD (PCP/Family) Primary Care Physician Patient Instructions: Sore Throat, Adult ED Add. Discharge Instructions: Drink plenty of clear liquids to stay well-hydrated. Complete your antibiotics as prescribed unless your throat culture reveals no bacterial infection (strep throat). Your culture results should be available within 48 hours. You may contact your primary care provider or the ER if you have not heard about your culture results after 48 hours. Replace or sanitize any oral instruments such as toothbrushes 5 days into your antibiotic treatment. Return to care if you have worsening symptoms despite following these instructions. For pain you may take ibuprofen up to 400 mg every 6 hours as needed and/or Tylenol (acetaminophen) up to 650 mg every 6 hours as needed. All discharge instructions reviewed with patient and/or family. Voiced understanding. Scripts Amoxicillin (Amoxicillin) 500 Mg Capsule 1000 MG PO BID, #28 CAP Prov: CALLUM LANDERS MD 02/20/22 Work/School Note: Work Release Form Date Seen in the Emergency Department: February 20, 2022 Return to Work: February 21, 2022 Restrictions: Return-No Fever (24hrs), Return-No Vomiting(24hrs) Medical Student Attestation and Attending Note: I have personally interviewed and examined this patient along with Florencio Almonte, MS 3. I have reviewed student documentation including history, physical, and assessments. I agree with the documentation except where otherwise noted. Exam: General: Alert, oriented, no acute distress, well developed HEENT: Normocephalic and atraumatic, mucous membranes moist, tympanic membranes normal, mild erythema and edema of the posterior pharynx and tonsils with no exudate or petechiae Heart: Regular rate and rhythm without murmur Lungs: Clear to auscultation bilaterally with normal effort Neuropsych: Alert, oriented, no focal deficits Skin: Warm and dry without rashes (CALLUM LANDERS MD) FLORENCIO ALMONTE February 20, 2022 09:43 CALLUM LANDERS MD February 20, 2022 10:16
[2022-02-20] MEDS ORDERED: AMOX500C2 PO (12:01)
[2022-02-20 12:18] VITALS: BP 124/80
== END 2022-02-20 12:18 | disposition home or self-care (01) ==
LOC: EDUNIT# 08:54 → ER 08:55
DX: J02.9 Acute pharyngitis, unspecified (principal); F17.290 Nicotine dependence, other tobacco product, uncomplicated; Z20.822 Contact with and (suspected) exposure to COVID-19
CPT/HCPCS: 87430; 87636; 99283

== ENCOUNTER 2023-05-25 16:57 | Emergency (ER) | payer MEDICAID ==
[~2023-05-25] VITALS: Ht 168 cm; Wt 49.0 kg
[~2023-05-25 16:57] MED LIST changes: +AMOX500C2 PO
[2023-05-25] MEDS ORDERED: KETOROLAC INJ 30 MG/ML VIAL IVP STA (18:02)
--- NOTE | 2023-05-25 18:10 | ED Respiratory ---
General Chief Complaint: Chest Pain Stated Complaint: CHEST PAIN Nursing Triage Note: pt ambulatory to room. states that at approx 1630 she got a pain in her lower sternum. states it felt like someone punched her in the chest and the pain has not gone away since then. also reports the pain is "like a stabbing pain" in her sternal area. pt reports pain is worse on inspiration and that she "has felt sweaty." pt denies nausea or any other symptoms. pt does report that her significant other has been sick recently. pt is A&Ox4, speech normal on arrival History of Present Illness Date Seen by Provider: May 25, 2023 Time Seen by Provider: 17:10 Initial Comments 22-year-old female presents for lower sternal pain that is tender to palpation, she reports it is a stabbing-like pain. It began later this afternoon. She does report that her significant other has flu B. She has been coughing over the last 2 weeks. She has not been tested for COVID or influenza. She took Tylenol earlier this morning for general complaints of not feeling good with little to no improvement. Timing/Duration: this afternoon Severity: moderate Prior Episodes/Possible Cause: no prior episodes Associated Symptoms: chest pain/soreness (Lower sternal border, tender to palpation), cough (Nonproductive); No dizziness, No earache, No facial pain, No fever/chills, No headache, No muscle aches, No nasal congestion, No nasal drainage, No shortness of breath, No sinus infection, No sore throat, No wheezing Allergies and Home Medications Allergies Coded Allergies: No Known Drug Allergies (Unverified , 12/05/20) Patient Home Medication List Home Medication List Reviewed: Yes Amoxicillin (Amoxicillin) 500 Mg Capsule, 1,000 MG PO BID Prescribed by: CALLUM MERRITT on 02/20/22 1201 Ibuprofen (Ibu) 600 Mg Tablet, 600 MG PO Q6HR Prescribed by: RED ALVES on 02/21/21 0720 Pnv Cmb#21/Iron/Folic Acid ( Complete Caplet) 1 Each Tablet, 1 EACH PO DAILY Prescribed by: AMANDA RODRIGUEZ on 02/18/21 8254 Review of Systems Review of Systems Constitutional: no symptoms reported, see HPI Respiratory: no symptoms reported, see HPI Cardiovascular: see HPI, chest pain (Lower sternal) Gastrointestinal: no symptoms reported, see HPI All Other Systems Reviewed Negative Unless Noted: Yes Past Cjyyvua-Dezbao-Puehjw Hx Immunizations Up To Date Tetanus Booster (TDap): Less than 5yrs Seasonal Allergies Seasonal Allergies: No Past Medical History Surgeries: No Respiratory: No Cardiac: No Neurological: No Last Menstrual Period: May 25, 2023 Genitourinary: No Gastrointestinal: No Musculoskeletal: No Endocrine: No HEENT: No Cancer: No Psychosocial: No Integumentary: No Blood Disorders: No Family Medical History Reviewed Nursing Family Hx Physical Exam Vital Signs - First Documented 05/25/23 17:00 Temp 37.0 Pulse 72 Resp 22 B/P (MAP) 149/96 (113) Pulse Ox 100 Capillary Refill : Height: '" Weight: lbs. oz. kg; 17.00 BMI Method: General Appearance: WD/WN, no apparent distress Respiratory: lungs clear, normal breath sounds, other (lower sternal boarder tender to palpation. ) Cardiovascular: normal peripheral pulses, regular rate, rhythm Gastrointestinal: normal bowel sounds, non tender, soft Neurologic/Psychiatric: no motor/sensory deficits, alert, normal mood/affect, oriented x 3 Skin: normal color, warm/dry Progress/Results/Core Measures Suspected Sepsis SIRS Temperature: Pulse: 72 Respiratory Rate: 22 Blood Pressure 149 /96 Mean: 113 Results/Orders Lab Results Laboratory Tests Test 05/25/23 17:14 Range/Units Influenza Type A (RT-PCR) Not Detected Not Detecte Influenza Type B (RT-PCR) Not Detected Not Detecte SARS-CoV-2 RNA (RT-PCR) Not Detected Not Detecte My Orders Orders - EAMON OROPEZA Influenza A And B By Pcr (05/25/23 17:47) Covid 19 Inhouse Test (05/25/23 17:47) Ketorolac Injection (Ketorolac Injection (05/25/23 18:02) Vital Signs/I&O 05/25/23 17:00 Temp 37.0 Pulse 72 Resp 22 B/P (MAP) 149/96 (113) Pulse Ox 100 Capillary Refill : Blood Pressure Mean: 113 Progress Note : Time: 17:10 Progress Note Patient assessed, will check flu and COVID. Toradol 30 mg IV for pain. 1800 Patient reports pain is improving. Awaiting test results. 183 COVID and influenza negative. Patient continues to state she has improved. Discharge instructions and return cautions reviewed with her. Departure Impression Primary Impression: Costochondral pain Disposition: 01 HOME, SELF-CARE Condition: Improved Departure-Patient Inst. Decision time for Depature: 18:20 Referrals: LORRAINE WHITE MD (PCP/Family) Primary Care Physician Patient Instructions: Costochondritis (DC) Add. Discharge Instructions: Activity as tolerated. Alternate between Tylenol 650 mg and ibuprofen 600 mg every 4 hours for pain. Follow-up at [facility] if your symptoms or not improving or worsen. Return to the emergency department for new, urgent healthcare needs. All discharge instructions reviewed with patient and/or family. Voiced understanding. Work/School Note: Work Release Form Date Seen in the Emergency Department: May 25, 2023 Return to Work: May 26, 2023 Restrictions: No Restrictions EAMON OROPEZA May 25, 2023 18:10
[2023-05-25 18:44] VITALS: BP 127/81
== END 2023-05-25 18:46 | disposition home or self-care (01) ==
LOC: EDUNIT# 16:57 → ER 16:58
DX: M94.0 Chondrocostal junction syndrome [Tietze] (principal); Z20.822 Contact with and (suspected) exposure to COVID-19; Z28.310 Unvaccinated for COVID-19
CPT/HCPCS: 87636; 93005